=== PATIENT | male | born 1945 | race Caucasian/White ===

== ENCOUNTER 2021-07-07 16:16 | Emergency (ER) | payer MEDICARE, BC, OTHER ==
[~2021-07-07] VITALS: Ht 188 cm; Wt 95.5 kg
[~2021-07-07 16:16] MED LIST: epiNEPHrine 0.1mg/ml 10ml syringe ONE
--- NOTE | 2021-07-07 17:27 | NUR ---
[facility] CONTACTED. fAMILY AT BEDSIDE.
--- NOTE | 2021-07-07 18:53 | NUR ---
charting not completed upon assuming care of patient . [facility] contacted and they are enroute. 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
== END 2021-07-07 19:36 ==
LOC: ER 16:17
DX: I46.9 Cardiac arrest, cause unspecified (principal); J93.9 Pneumothorax, unspecified
CPT/HCPCS: 31500; 71045; 92950; 93005; 94799; 99285; J0171